=== PATIENT | female | born 1975 | race Caucasian/White ===

== ENCOUNTER 2023-07-09 13:38 | Emergency (ER) | payer OTHER, SELFPAY ==
[2023-07-09 13:42] VITALS: BP 111/80
--- NOTE | 2023-07-09 14:07 | ED.GENMED ---
History of Present Illness
General
Chief Complaint: Back Pain
Source: patient
Exam Limitations: none
Time Seen by Provider: 07/09/23 13:46
Travel History
Have you had any contact with someone who has COVID-19?: No
Do you have any symptoms of coronavirus? Fever > 100 degrees, chills, cough, shortness of breath, sore throat, loss of taste or smell, muscle aches, or headache?: No
History of Present Illness
History of Present Illness:
47-year-old female otherwise healthy presents with lower back pain that radiates to both posterior hips. This has been progressively getting worse over the past 2 to 3 days. No known injury. She tried Tylenol and Advil without relief. Initially
seen at the urgent care then sent here for further evaluation. Denies any bowel or bladder dysfunction. No perianal anesthesia. Pain is made worse with motion. She is currently breast-feeding.
Phy Exam
Physical Exam
Physical Exam:
General: Well-appearing female no acute respiratory distress but does look uncomfortable
HEENT: Normocephalic atraumatic
Heart: Regular rate and rhythm
Lungs: Clear no wheeze;
Abdomen soft nontender
Musculoskeletal exam: Spasm noted throughout the lumbar spine. She is tender over the lumbar sacral junction
Neurologic: Good sensation bilateral lower extremities. Bilateral patellar reflex and Achilles reflex 2+. Good strength.
Vascular: Bilateral 2+ dorsalis pedis pulse
Course
Orders/Labs/Results
Orders:
Orders
07/09/23 14:05
Ketorolac [Toradol] 30 mg IV NOW STA
diazePAM [Valium Injection] 5 mg IV NOW STA
Vital Signs
Initial and Last Documented VS:
Initial Vital Signs
Temp Pulse Resp BP Pulse Ox
98.4 F 62 18 111/80 100
07/09/23 13:42 07/09/23 13:42 07/09/23 13:42 07/09/23 13:42 07/09/23 13:42
Last Documented Vital Signs
Temp Pulse Resp BP Pulse Ox
98.4 F 62 18 111/80 100
07/09/23 13:42 07/09/23 13:42 07/09/23 13:42 07/09/23 13:42 07/09/23 13:42
MDM/Problems Addressed
Differential Diagnosis Includes:
Low back pain without significant leg discomfort. No bowel or bladder dysfunction or red flags to suggest cauda equina. No to suggest infectious source. Suspect muscular strain versus herniated disc versus degenerative disc disease
Family and patient hoping for an MRI, unfortunately, no emergent need for MRI imaging at this point.
Will try Toradol and Valium for her symptoms
*Critical Care Note
Total Time (30-74mins, 75-104mins- exclusive of procedures): Not Applicable
Update Note
Update Note:
Patient feeling better after Toradol and Valium. She is comfortable. I do suspect largely a component of muscular spasm but will refer to pain management for further evaluation and imaging if needed. Will prescribe prednisone and muscle relaxers.
ED Attending Note
-
Portions of this chart may have been created with voice recognition software.� Occasional wrong word or��sound alike� substitutions may have occurred due to the inherent limitations of voice recognition software.
Discharge Plan
Departure
Patient Disposition: Home (Routine Discharge)
Date of Disposition: 07/09/23
Time of Disposition: 15:22
Patient with high blood pressure during this ER visit?: No
Discharge Problem:
Low back pain
Instructions: Low Back Pain (DC)
Prescriptions:
New
prednisone 10 mg Tablet
See Rx Instructions .ROUTE .COMPLEX Qty: 30 0RF
Rx Instructions:
Take By Mouth:
40 mg daily x3 days, 30 mg daily x3 days,
20 mg daily x3 days, 10 mg daily x3 days.
diazepam [Valium] 5 mg tablet
5 mg PO BID PRN (Reason: muscle spasm) Qty: 10 0RF
Referrals:
Hay Ray MD [Active] -
NONE,* [Family Provider] -
Activity Restrictions/Additional Instructions:
Continue rest. Use warm compresses to the back. Continue with anti-inflammatories and muscle relaxers. Return if needed otherwise follow-up with pain management
Interventions
Interventions:
*Risk Screen - Suicide Last Done: 07/09/23 13:44
*General Assessment Last Done: 07/09/23 13:44
*Neglect/Abuse Screening Last Done: 07/09/23 13:44
*ED COVID-19 Vaccine History Last Done: 07/09/23 15:05
ED-Musculoskeletal Assessment Last Done: 07/09/23 15:05
Discharge Date and Time
Print Language: BENGALI
[2023-07-09] MEDS: VALIUM INJECTION 5 MG IV (14:58)
[2023-07-09] MEDS: TORADOL 30 MG IV (14:58)
[2023-07-09 15:22] VITALS: BP 106/59
== END 2023-07-09 15:25 | disposition home or self-care (01) ==
LOC: EMR 13:38
PROVIDERS: EMERGENCY PHYSICIAN Emergency Medicine
DX: M54.50 Low back pain, unspecified (principal); M25.552 Pain in left hip; M25.551 Pain in right hip; M62.830 Muscle spasm of back
CPT/HCPCS: 99284; 96374; 96375

== ENCOUNTER 2024-09-07 23:59 | Inpatient (IN) | payer BC, SELFPAY ==
[2024-09-07 20:38] VITALS: BP 138/100
[2024-09-07 22:27] VITALS: BMI 29.3
--- NOTE | 2024-09-07 22:28 | ED.SKININJ ---
HPI-Injury
General
Chief Complaint: Skin Problem
Source: patient
Exam Limitations: none
Time Seen by Provider: 09/07/24 22:11
History of Present Illness-Injury
Initial Injury comments:
49-year-old female otherwise healthy presents with increasing swelling and pain to the right hand. 8 days ago she was working in the yard and developed blisters on both hands. She was taking down an old aboveground pool with dirty water in it.
She was wearing gloves at the time. The blister on the left hand healed up well however the blister on the right hand seem to stick around and over the past 2 to 3 days her right hand is swollen became more red and painful. She also notes that her
finger is bending and hurts to straighten her index finger. She went to an urgent care today received an injection of an antibiotic and started on Keflex. She has had 2 doses of her Keflex but notes worsening symptoms. She is [id number].
She is not a diabetic. She denies fevers. She denies any drainage. No other complaint
Phy Exam
Physical Exam
Physical Exam:
General: Well-appearing female no acute respiratory distress
HEENT: Normocephalic atraumatic
Heart: Regular rate and rhythm
Lungs: Clear no wheeze
Skin: Erythema swelling and induration noted over the thenar eminence on the right hand. There is swelling that radiates to the dorsum of the hand as well
Musculoskeletal exam: The right index finger passively flex and attempt at straightening the finger does reproduce pain.
Vascular: Brisk capillary refill to the fingers on the right hand
Course
Orders/Labs/Results
Orders:
Orders
09/07/24 22:26
US Non Vasc UPPER Ext RT Urgent
Comment:
Reason For Exam: right hand infection, possible abscess
09/07/24 22:35
CRP [C-Reactive Protein] Urgent
Complete Blood Count/With Diff Urgent
Comprehensive Metabolic Panel Urgent
Sed Rate [Erythrocyte Sed Rate] Urgent
09/07/24 23:00
Vancomycin [Vancocin] 2,000 mg 0.9% Sodium Chloride 500 ml [Nss] 500 ml IV ONCE
Abnormal Lab Results
09/07/24
22:35
WBC 11.1 H 10^3/uL
(4.8-10.8)
MPV 10.5 H fL
(7.4-10.4)
Abs Immat Gran (auto) 0.1 H 10^3/uL
(0-0.05)
Absolute Neuts (auto) 7.7 H 10^3/uL
(1.4-6.5)
Absolute Monos (auto) 0.8 H 10^3/uL
(0.1-0.6)
Immature Gran % 0.6 H %
(0-0.5)
Chloride 111 H mmol/L
(98-107)
Carbon Dioxide 20 L mmol/L
(22-30)
Glucose 104 H mg/dl
(70-99)
C-Reactive Protein 36.60 H mg/L
(0.0-10.00)
09/07/24 22:35
09/07/24 22:35
Vital Signs
Initial and Last Documented VS:
Initial Vital Signs
Temp Pulse Resp BP Pulse Ox
98.7 F 75 18 138/100 100
09/07/24 20:38 09/07/24 20:38 09/07/24 20:38 09/07/24 20:38 09/07/24 20:38
Last Documented Vital Signs
Temp Pulse Resp BP Pulse Ox
98.7 F 75 18 138/100 100
09/07/24 20:38 09/07/24 20:38 09/07/24 20:38 09/07/24 20:38 09/07/24 22:33
MDM/Problems Addressed
Differential Diagnosis Includes:
Right hand swelling and pain. Consider cellulitis versus flexor tendon infection versus abscess.
Patient just started an oral antibiotic today however the symptoms are getting worse. Clinically there is some concern for flexor tendon involvement given the flexion of the finger with pain with passive extension of the finger. Will check labs.
Will order ultrasound to check for fluid collection. Start with
*Pulse Oximetry
SaO2: 100
Oxygen Mode of Delivery: Room air
Patient hypoxic: no
*Critical Care Note
Total Time (30-74mins, 75-104mins- exclusive of procedures): Not Applicable
Update Note
Update Note:
Spoke with health type technician. No obvious fluid collection. White blood cell count mildly elevated. CRP mildly elevated. Concern for possible flexor tendon infection given findings on exam. Vancomycin ordered. Will admit to hospital
ED Attending Note
-
Portions of this chart may have been created with voice recognition software.� Occasional wrong word or��sound alike� substitutions may have occurred due to the inherent limitations of voice recognition software.
Discharge Plan
Departure
Patient Disposition: Admit
Date of Disposition: 09/07/24
Time of Disposition: 23:45
Presentation/result/management discussed w/ accepting MD/DO: Hospitalist
Discharge Problem:
Cellulitis of hand, right
Prescriptions:
No Action
prednisone 10 mg Tablet
See Rx Instructions .ROUTE .COMPLEX Qty: 30 0RF
Rx Instructions:
Take By Mouth:
40 mg daily x3 days, 30 mg daily x3 days,
20 mg daily x3 days, 10 mg daily x3 days.
diazepam [Valium] 5 mg tablet
5 mg PO BID PRN (Reason: muscle spasm) Qty: 10 0RF
Referrals:
UNKNOWN - PT DOES,NOT KNOW [Family Provider]
Interventions
Interventions:
*Risk Screen - Suicide Last Done: 09/07/24 20:38
*General Assessment Last Done: 09/07/24 22:28
*Neglect/Abuse Screening Last Done: 09/07/24 20:38
*ED- Fall Risk Assessment Last Done: 09/07/24 22:28
*ED COVID-19 Vaccine History Last Done: 09/07/24 22:28
ED-Skin Assessment Last Done: 09/07/24 22:28
Discharge Date and Time
Print Language: FRENCH
[2024-09-07 22:44] LABS: Hematocrit 39.9 % (37.0-47.0); Hemoglobin 13.7 g/dL (12.0-16.0); Mean Corp Hgb Conc. 34.3 g/dL (33.0-37.0); Mean Corpuscular Volume 81.4 fL (81.0-99.0); Nucleated Red Blood Cells % 0 %; Platelet Count 240 10^3/uL (130-400); Red Cell Dist. Width 14.0 % (11.5-14.5)
[2024-09-07 23:00] LABS: ALT (SGPT) 16 U/L (0-35); AST (SGOT) 18 U/L (14-36); Albumin 4.7 g/dl (3.5-5.0); Alkaline Phosphatase 84 U/L (38-126); Blood Urea Nitrogen 11 mg/dl (7-17); Calcium 8.9 mg/dl (8.4-10.2); Carbon Dioxide 20 mmol/L (22-30); Chloride 111 mmol/L (98-107); Estimated Creatinine Clearance 104 ml/min; Glucose 104 mg/dl (70-99); Potassium 3.9 mmol/L (3.5-5.1); Sodium 139 mmol/L (135-145); Total Protein 7.3 g/dl (6.3-8.2); eGFR > 60.00
[2024-09-07 23:13] LABS: C-Reactive Protein 36.60 mg/L (0.0-10.00)
[2024-09-07] MEDS: VANCOCIN 540 MG IV (23:57)
--- NOTE | 2024-09-08 00:06 | HPS.HSE ---
Family Physician
-
Family Physician: NOT KNOW UNKNOWN - PT DOES
Chief Complaint
-
Hand pain / swelling
History of Present Illness
Patient is a 49y F with no significant PMH who presents to ED complaining of right hand pain, swelling and redness. Patient states that she was doing yard work / digging with tools about one week ago. She developed blisters on both hands
(thenar eminence). The L hand healed well. The R had persistent blistering until yesterday when it became much more swollen and painful. Today the hand was red, swollen and warm. She had difficulty moving her index finger due to pain.
Patient denies any fevers / chills, N/V/D, etc.
She was seen at Urgent Care today where she was given an IM injection of abx and started on oral cephalexin.
Her symptoms seemed to be progressing this evening prompting her to present to the ED for further evaluation.
Medical History
Past Medical History
Past Medical History: Reports None
Past Surgical History: Reports None
Social History
Tobacco: Non-smoker
Alcohol: None
Drug: None
Family History
Family History: Not pertinent
Allergies / Home Medications
Allergies reflects when Allergies were last updated in [facility].
Home Medications with original date entered in [facility]
Allergy/Medication List:
Allergies
Allergy/AdvReac Type Severity Reaction Status Date / Time
No Known Allergies Allergy Unverified 09/07/24 20:37
Home Medications
No Meds [No Current Medications] 09/07/24
Review of Systems
-
History Source: Patient
A 12 point ROS was completed and negative except as noted: Yes
Constitutional: Reports Fatigue; Denies Fever or Chills
Respiratory: Denies Cough or Trouble Breathing
Cardiac: Denies Chest Pain or Palpitations
Abdomen/GI: Denies Abdominal Pain, Nausea, Vomiting or Diarrhea
: Denies Dysuria or Frequency
Musculoskeletal: Reports Joint Pain, Joint Swelling and Edema
Neurological: Denies Dizzy or Headache
Psych: Denies Depression or Anxiety
Physical Exam
Vital Signs
Vital Signs
Temp Pulse Resp BP Pulse Ox
98.7 F 75 18 138/100 100
09/07/24 20:38 09/07/24 20:38 09/07/24 20:38 09/07/24 20:38 09/07/24 22:33
Physical Exam
General: Other (49y F in no acute distress.)
HEENT: Moist mucous membranes and PERRLA
Respiratory: Clear; No Wheezes, Rales or Rhonchi
Cardiac: S1/S2 and Regular Rhythm; No Murmur
GI: Soft, Non Tender, Non Distended and Normal Bowel Sounds
Musculoskeletal: Other (R hand edematous / erythematous - especially over the thenar eminence. Overlying superficial blister / skin breakdown. No bleeding / discharge. No fluctuance. R index finger in flexed position. Pain with ROM.)
Neuro: AO x 3
Laboratory Results
-
09/07/24 22:35
09/07/24 22:35
Laboratory Results
Total Bilirubin 0.8 mg/dl (0.2-1.3) 09/07/24 22:35
AST 18 U/L (14-36) 09/07/24 22:35
ALT 16 U/L (0-35) 09/07/24 22:35
Alkaline Phosphatase 84 U/L (38-126) 09/07/24 22:35
Impression/Plan
-
A/P: Patient is a 49y F with no significant PMH who presents to ED complaining of R hand pain, swelling and redness about one week after injury / blister formation.
Right Hand Cellulitis / Tenosynovitis
- Admit for further evaluation and treatment.
- Limited ROM of the R index finger with pain and significant local skin changes concerning for tenosynovitis.
- IV abx for now with vancomycin and ceftriaxone.
- Pain control / supportive care / etc.
- US done in the ED shows no discrete / drainable collection.
- Follow for clinical improvement.
- Consider Ortho / Hand Surgery evaluation if symptoms worsen or persist.
DVT Prophylaxis: SCDs
Code Status: Full
[2024-09-08] MEDS: TORADOL 15 MG IV (00:09)
[2024-09-08 00:11] VITALS: BP 145/91
[2024-09-08 01:01] VITALS: BP 128/84; BMI 29.0
[2024-09-08] MEDS: NSS 1000 IV ×3 (02:03→15:25)
[2024-09-08] MEDS: ROCEPHIN 1000 MG IV (02:04)
[2024-09-08] MEDS: STERILE WATER FOR INJECTION 10 ML IV (02:04)
[2024-09-08 06:57] LABS: Hematocrit 36.8 % (37.0-47.0); Hemoglobin 12.9 g/dL (12.0-16.0); Mean Corp Hgb Conc. 35.1 g/dL (33.0-37.0); Mean Corpuscular Volume 79.8 fL (81.0-99.0); Platelet Count 203 10^3/uL (130-400); Red Cell Dist. Width 13.8 % (11.5-14.5)
[2024-09-08 07:00] VITALS: BP 128/76
[2024-09-08 07:31] LABS: Blood Urea Nitrogen 10 mg/dl (7-17); Calcium 8.1 mg/dl (8.4-10.2); Carbon Dioxide 18 mmol/L (22-30); Chloride 113 mmol/L (98-107); Estimated Creatinine Clearance 121 ml/min; Glucose 94 mg/dl (70-99); Potassium 3.6 mmol/L (3.5-5.1); Sodium 138 mmol/L (135-145); eGFR > 60.00
--- NOTE | 2024-09-08 07:43 | W.PN.HOSP.TC ---
Today's Communication/Plan
-
Continue antibiotics
NPO after midnight for OR tomorrow
Assessment / Plan
Assessment / Plan
Physical Exam
General: Not in acute distress
HEENT: Moist mucous membranes
Respiratory: Clear to Auscultation Bilaterally
Cardiac: S1/S2 and Regular Rhythm
GI: Soft, Non Tender, Non Distended and Normal Bowel Sounds
Musculoskeletal: Other (R hand edematous / erythematous - especially over the thenar eminence. Overlying skin breakdown. Pain with ROM.)
Neuro: AO x 3
Assessment/Plan
49y F with no significant PMH who presented to ED complaining of right hand pain, swelling and redness. Patient stated that she was doing yard work / digging with tools about one week prior to presentation. She developed blisters on both hands
(thenar eminence). The L hand healed well. The R had persistent blistering until the day before presentation, when it became much more swollen and painful. On the day of presentation, patient's hand was red, swollen and warm. She had difficulty
moving her index finger due to pain.
Patient denied any fevers / chills, N/V/D, etc.
She was seen at Urgent Care on the day of presentation, where she was given an intramuscular injection of antibiotics and started on oral cephalexin.
Her symptoms seemed to be progressing prompting her to present to the ED for further evaluation.
Right Hand Cellulitis / Tenosynovitis
- Limited ROM of the R index finger with pain and significant local skin changes concerning for tenosynovitis.
- IV abx for now: Vanc and Rocephin changed to Zosyn
- Pain control / supportive care / etc.
- US done in the ED shows no discrete / drainable collection.
- Follow for clinical improvement.
- Consulted ID and ortho hand specialist: NPO after midnight for OR tomorrow
Reports of
-Patient clearly stated that she is NOT and was advised to hold off on at this time
DVT Prophylaxis: SCDs
Code Status: Full
Anticipated Discharge: > 48 hours
Subjective/Interval History
-
Date of Service: September 08, 2024
Patient was seen and examined. She reported her right hand symptoms have not really improved, she is having trouble making a fist, and her right hand remains quite swollen.
Objective Data
-
Labs:
Laboratory Results
09/07/24 09/08/24
22:35 05:50
WBC 11.1 H 8.0
Hgb 13.7 12.9
Hct 39.9 36.8 L
Plt Count 240 203
Sodium 139 138
Potassium 3.9 3.6
Chloride 111 H 113 H
Carbon Dioxide 20 L 18 L
BUN 11 10
Creatinine 0.7 0.6
Glucose 104 H 94
Calcium 8.9 8.1 L
Total Bilirubin 0.8
AST 18
ALT 16
Alkaline Phosphatase 84
Vital Signs:
Vital Signs
Temp Pulse Resp BP Pulse Ox
98.3 F 69 18 128/84 97
09/08/24 01:01 09/08/24 01:01 09/08/24 01:01 09/08/24 01:01 09/08/24 01:01
I&O
09/07/24 09/08/24 09/09/24
06:59 06:59 06:59
Intake Total 1185 / 1185
Balance 1185 / 1185
--- NOTE | 2024-09-08 08:22 | PHA.VAN.IN ---
Assessment
- Assessment
Renal Function: Appears similar to baseline
Maximum Temperature: 98.7
Minimum Temperature: 98.3
Concomitant Antimicrobials: Ceftriaxone
AUC Dosing Plan
- Dosing Variables
Dosing Weight (kg): 79.2
Dosing CrCl (ml/min): 121
Vd coefficient (L/kg): 0.7
- Empiric Dosing
Initial / Loading Dose: 2000mg on 09/07 @2357
Maintenance Regimen: 1250mg Q12H
Estimated AUC (mcg*h/mL): 464
Estimated Peak (mcg*h/mL): 31.5
Estimated Trough (mcg/ml): 10.5
Estimated Half Life (H): 6.6
- Monitoring
No levels ordered at this time: Consider levels in next few days
Pharmacokinetics Vancomycin I
- -
Patient Age: 49
Patient Sex: Female
Vancomycin Day #: 1
Indication: Skin And Soft Tissue
Requesting Provider: Joan Moser
Pertinent Antimicrobial Allergies:
NKDA
Height / Weight:
Height 5 ft 5 in
Actual Weight 79.152 kg
- Vital Signs / Lab Results
Temp Pulse Resp BP Pulse Ox
98.5 F 64 16 128/76 99
09/08/24 07:00 09/08/24 07:00 09/08/24 07:00 09/08/24 07:00 09/08/24 07:00
Lab Results - Hematology
09/07/24 09/08/24
22:35 05:50
WBC 11.1 H 8.0
Lab Results - Chemistry
09/07/24 09/08/24
22:35 05:50
BUN 11 10
Creatinine 0.7 0.6
Estimated Creat Clear 104 121
Albumin 4.7
[2024-09-08] MEDS: FLAGYL 500 MG 100 IV (10:21)
--- NOTE | 2024-09-08 14:11 | PTCARENOTE ---
Pt is not breast feeding. nurse came to see the pt. aware
--- NOTE | 2024-09-08 14:40 | LACTATION ---
Saw pt. at 1330 to discuss . Pt. states her son is 21 mo. old and her 'milk is dried up.' He occasionally nurses at the breast for comfort which is why her brought the toddler in to visit his mom. All meds are compatible with
per [facility]'s Medication and Mother's Milk; Vancomycin L1, Rocephin L1, Toradol L2, Flagyl L2, and Dilaudid L3 which she isn't using, so even if child received a minute amount of milk from an occasional breastfeed, it should not pose a
risk. Pt. has no need to pump since breasts are empty.
[2024-09-08 15:00] VITALS: BP 133/85
--- NOTE | 2024-09-08 15:04 | CON.ID ---
Consultation
-
Date/Time Consultation Requested: 09/08/2024 1011
Date/Time Consultation Performed: 08/12/2024 1440
Requesting Provider: Dr. Segovia
Performing Provider: Dr. Sloan
Reason for Consultation: Right hand cellulitis
Chief Complaint / Past History
History of Present Illness
Clay Ventura is a 49-year-old female being evaluated in Infectious Diseases consultation regarding right hand cellulitis and possible abscess. History is obtained from chart review, along with patient interview.
Patient reports that approximately 8 days prior she was working with her family in the yard doing yard work. She notes that she was using garden tools, and despite the use of gloves, she developed blisters on her bilateral hands. She applied
Neosporin to the area after the blisters broke. Several days ago she then was cleaning out an aboveground pool, and her hand may have come in contact with the stagnant water ovarian. She then began to develop swelling in the hand that day. She
was seen at an urgent care yesterday, received a shot of 'an antibiotic' in her arm and sent home on Keflex. Despite only a few doses of antibiotics, the hand continued to swell and she came to the emergency room for further evaluation.
Currently she notes ongoing swelling of the right hand. She is having difficulty with range of motion. She denies any fevers or chills. She describes pain in the hand, especially in the thenar eminence area. She denies any significant forearm
pain or axillary discomfort.
Past History
Past Medical History: None
Past Surgical History: None
Allergy History:
No Known Allergies Allergy (Unverified 09/07/24 20:37)
Medications Reviewed: Yes
Current Antibiotics:
Vancomycin
Ceftriaxone
Metronidazole
Social History
Tobacco: Non-Smoker
Alcohol: None
Drug: None
Personal:
Living: With Family
Employment: Employed
Family History
Family History: Not Pertinent
Review of Systems
Vital Signs
Temp Pulse Resp BP Pulse Ox
98.5 F 64 16 128/76 99
09/08/24 07:00 09/08/24 07:00 09/08/24 07:00 09/08/24 07:00 09/08/24 07:00
Physical Exam
Physical Exam
Constitutional: No Acute Distress, Comfortable and Non-toxic
Eyes: No Conjunctival Hemorrhage and Sclera Anicteric
Oral: No Thrush and No Ulcers
Cardiovascular: S1/S2; Negative S3/S4
Pulmonary: Clear and Non Labored
Gastrointestinal: Soft, Non Tender, Non Distended and Normal Bowel Sounds
Extremities: Edema (right hand, centered on the thenar eminence area) and Erythema (Right hand)
Musculoskeletal: Other (Decreased right hand range of motion.)
Skin: Warm and Dry
Neurological: Awake and Alert
Psychological: Calm
Lab / Diagnostic Study Results
09/08/24 05:50
09/08/24 05:50
Abs Immat Gran (auto) 0.1 10^3/uL (0-0.05) H 09/07/24 22:35
Absolute Neuts (auto) 7.7 10^3/uL (1.4-6.5) H 09/07/24 22:35
Absolute Lymphs (auto) 2.4 10^3/uL (1.2-3.4) 09/07/24 22:35
Absolute Monos (auto) 0.8 10^3/uL (0.1-0.6) H 09/07/24 22:35
Absolute Basos (auto) 0.0 10^3/uL (0-0.2) 09/07/24 22:35
Immature Gran % 0.6 % (0-0.5) H 09/07/24 22:35
Neutrophils % 69.3 % (42.2-75.2) 09/07/24 22:35
Lymphocytes % 21.4 % (20.5-51.1) 09/07/24 22:35
Monocytes % 6.9 % (1.7-9.3) 09/07/24 22:35
Eosinophils % 1.4 % (0-6) 09/07/24 22:35
Basophils % 0.4 % (0-2) 09/07/24 22:35
ESR 5 mm/hour (0-20) 09/07/24 22:35
C-Reactive Protein 36.60 mg/L (0.0-10.00) H 09/07/24 22:35
Microbiology Results
Micro:
09/08/24 10:44 MRSA Screen - Pending
Nose
Imaging:
09/07/2024 Ultrasound right upper extremity: Scanning of the area of concern of the lateral right hand along the palmar aspect shows no focal fluid collection. There is diffuse edematous change of the soft tissues
Assessment / Plan
Right hand cellulitis
Leukocytosis
Recommendations:
Consolidate antibiotics to Zosyn 4.5 g IV every 6 hours.
Check MRI of the right hand to assess for tenosynovitis or abscess. (Ordered)
Recommend Ortho�Hand evaluation.
Follow white count and temperature curve.
Lower extremity elevation to facilitate swelling control
Care Review
Plan reviewed with: Physician (Hospitalist)
[2024-09-08] MEDS: ZOSYN 100 IV ×2 (15:24→21:07)
--- NOTE | 2024-09-08 15:58 | CM ---
Alert awake oriented patient who lives with her Sang and 4 children in a 2 story home with 2 steps to enter and 15 steps to bed/bathroom. She is independent in activates of daily living.She does drive .Offered VN she declined need.
No VN in past . No SNF hx
Pharmacy [facility]
PCP Mic Salmeron
PLAN Home with no needs
--- NOTE | 2024-09-08 17:17 | CON.ORTHO ---
Consultation
-
Date/Time Consultation Requested: 09/08/2024; 1600
Date/Time Consultation Performed: 09/08/2024; 1715
Performing Provider: Lakeshia Gill PA-C for Dr. Tyler Gould
Reason for Consultation: Right hand cellulitis/infection
Consultation - Orthopedics
History
Ms. Ventura is a 49 year old female with no significant PMH seen today for her right hand. She reports she was working in her yard, and taking down an old pool on 08/30/2024. She noticed blisters develop on both hands over her thenar eminence. The left
hand healed without difficulty, but her right hand became progressively worse with time. She presented initially to urgent care where she received a dose of IM antibiotics, and was prescribed Keflex. Her symptoms continued to worsen which prompted
her to present to the emergency department. She localizes pain primarily to the thenar eminence of her right hand. She denies pain elsewhere. She denies fever, chills or other constitutional symptoms.
Allergies / Home Medications
Allergy/AdvReac Type Severity Reaction Status Date / Time
No Known Allergies Allergy Unverified 09/07/24 20:37
�Medication �Instructions �Recorded
No Meds [No Current Medications] 09/07/24
Vital Signs / Lab Results
Temp Pulse Resp BP Pulse Ox
98.6 F 80 16 133/85 100
09/08/24 15:00 09/08/24 15:00 09/08/24 15:00 09/08/24 15:00 09/08/24 15:00
09/08/24 05:50
09/08/24 05:50
Nonvasc US R Hand IMPRESSION:
No evidence of abscess formation.
Edematous soft tissue change.
ESR WNL. WBC WNL today.
Directed exam of the right hand reveals healing blister over the thenar eminence. Generalized swelling throughout the right hand, most notably about the thenar eminence. Erythema about the thenar eminence with a small amount of erythema tracking
along the dorsal wrist. Significant stiffness with flexion of the fingers. Pain with passive extension of the index finger. Sensation intact to light touch. Capillary refill <2 seconds.
Assessment / Plan
Right hand abscess and cellulitis
--Clay has experienced progressively worsening pain and swelling in her right hand after working in her yard about a week ago. I am also concerned for possible flexor tendon involvement given her pain with passive extension. She just completed
her MRI, report is pending. I have reached out to Dr. Armstrong for his input. He will review the MRI. For now, continue to monitor on antibiotics. I will make her NPO after midnight for possible OR tomorrow under the direction of Dr. Armstrong. We will
reevaluate her on rounds tomorrow morning. Pain control prn. Continue antibiotics per ID. She may perform gentle ROM of her hand as tolerated. Please reach out with any additional questions or concerns.
[2024-09-08] MEDS: TYLENOL 650 MG PO (21:07)
[2024-09-08] MEDS: STERILE WATER FOR INJECTION IV (23:33)
[2024-09-08 23:41] VITALS: BP 111/67
[2024-09-09] VITALS (12 sets, daily range): BP systolic 102–162; BP diastolic 64–95
[2024-09-09] MEDS: ZOSYN 100 IV ×4 (03:32→21:01)
[2024-09-09 06:26] LABS: Hematocrit 39.2 % (37.0-47.0); Hemoglobin 13.6 g/dL (12.0-16.0); Mean Corp Hgb Conc. 34.7 g/dL (33.0-37.0); Mean Corpuscular Volume 80.7 fL (81.0-99.0); Nucleated Red Blood Cells % 0 %; Platelet Count 228 10^3/uL (130-400); Red Cell Dist. Width 13.6 % (11.5-14.5)
[2024-09-09 06:48] LABS: Blood Urea Nitrogen 7 mg/dl (7-17); Calcium 8.3 mg/dl (8.4-10.2); Carbon Dioxide 19 mmol/L (22-30); Chloride 115 mmol/L (98-107); Estimated Creatinine Clearance 103 ml/min; Glucose 93 mg/dl (70-99); Potassium 3.9 mmol/L (3.5-5.1); Sodium 140 mmol/L (135-145); eGFR > 60.00
--- NOTE | 2024-09-09 07:27 | W.PN.UPDATE ---
Update Note
Progress Note Update
Patient seen and evaluated by Orthopedic surgery on morning rounds. Since admission and initiation of IV ABX (Zosyn), she denies any noticeable change/improvement in symptoms. She denies any constitutional symptoms.
PE: Directed exam of the right hand reveals healing blister over the thenar eminence. Generalized swelling throughout the right hand, most notably about the thenar eminence. Erythema about the thenar eminence. Significant stiffness with flexion of
the fingers. Pain with passive extension of the index finger and tenderness to palpation over the index finger MCP joint (volar aspect). No significant pain with wrist ROM. Sensation intact to light touch. Capillary refill <2 seconds.
MRI of the Right Hand with and without contrast was performed at [facility] on 09/08/2024 and was made available for my review.
Impression: There is edema and enhancement within the medial palmar soft tissues with a 0.8 x 0.6 x 0.9 cm peripherally enhancing focus within the soft tissues just proximal to the first metacarpophalangeal joint. This demonstrates intermediate T2
signal and is likely phlegmonous change. There is no evidence of extension into the underlying flexor digitorum tendons or flexor pollicis longus tendon. There is no evidence of osteomyelitis.
Plan:
1) At this time, patient to remain NPO.
2) Discussed with Dr. Armstrong who will evaluate the patient this morning. Tentatively, she is placed on the OR schedule for RIGHT Hand Irrigation & Debridement.
3) Continue with IV ABX per ID recommendation. Continue with treatment per primary team.
4) Orthopedic surgery will continue to follow along. Further recommendations to come after Dr. Armstrong evaluation.
--- NOTE | 2024-09-09 09:00 | W.PN.UPDATE ---
Update Note
Progress Note Update
Patient seen and examined. MRI reviewed
There is an area of fluid collection in the thenar eminence area, no evidence of extension into the deeper space.
Will proceed with surgical exploration and I&D later today
Consent obtained, OR notified. NPO
[2024-09-09] MEDS: FLUSH (NSS) 2 FLUSH IV (10:49)
--- NOTE | 2024-09-09 13:18 | W.IMMPOSTOP ---
Surgical Immed Post Op Note
-
Primary Surgeon: Patti
Pre-op Diagnosis: Right hand infection
Post-op Diagnosis: Same
Procedure Performed: Right hand incision and debridement
Anesthesia Type: General
Specimen / Cultures: Right hand purulence
Estimated Blood Loss: 2cc
Complications: none
Operative Findings: Dictated [id number]. Purulent fluid collection superficial to thenar musculature. No evidence of flexor tenosynovitis
Plan
- NWB RUE
- Continue with IV abx
- Remove packing in 2-3 days
- Dressing change in 2-3 days
- Follow culture results
--- NOTE | 2024-09-09 14:36 | PTCARENOTE ---
patient received post op from PACU in bed, awake and oriented-right hand and arm with splint and adrienne wrap in place- fingers warm and pink with good capillary refill- reporting numbness of right thumb, has good sensation to thumb, reporting pain ,
unable to rate at this time, requesting rtylenol. call king in reach, aware of regular diet ordered. plan of care on going.
[2024-09-09] MEDS: FLUSH (NSS) 1 FLUSH IV (14:40)
[2024-09-09] MEDS: NSS 1000 IV (14:40)
[2024-09-09] MEDS: TYLENOL 650 MG PO (14:41)
--- NOTE | 2024-09-09 15:45 | W.PN.HOSP.TC ---
Today's Communication/Plan
-
Status post right hand incision and debridement with Dr. Armstrong
NWB of the Right Upper Extremity
Continue antibiotics
Follow cultures
Assessment / Plan
Assessment / Plan
Physical Exam
General: Not in acute distress
HEENT: Moist mucous membranes
Respiratory: Clear to Auscultation Bilaterally
Cardiac: S1/S2 and Regular Rhythm
GI: Soft, Non Tender, Non Distended and Normal Bowel Sounds
Musculoskeletal: Other (R hand edematous / erythematous - especially over the thenar eminence. Overlying skin breakdown. Pain with range of motion.)
Neuro: AO x 3
Assessment/Plan
49 y/o female with no significant past medical history who presented to the emergency department complaining of right hand pain, swelling and redness. Patient stated that she was doing yard work / digging with tools about one week prior to
presentation. She developed blisters on both hands (thenar eminence). The left hand healed well. The right hand had persistent blistering until the day before presentation, when it became much more swollen and painful. On the day of presentation,
patient's hand was red, swollen and warm. She had difficulty moving her index finger due to pain.
Patient denied any fevers / chills, N/V/D, etc.
She was seen at Urgent Care on the day of presentation, where she was given an intramuscular injection of antibiotics and started on oral cephalexin.
Her symptoms seemed to be progressing prompting her to present to the ED for further evaluation.
Right Hand Cellulitis / Tenosynovitis status post right hand incision and debridement with Dr. Armstrong on 09/09/24
- Limited ROM of the R index finger with pain and significant local skin changes concerning for tenosynovitis.
- IV abx for now: Vanc and Rocephin changed on 09/08/24 to Zosyn -- continue Zosyn
- Pain control / supportive care / etc.
- US done in the ED shows no discrete / drainable collection but patient had surgery with Dr. Armstrong -- purulent fluid collection superficial to thenar musculature
- Follow for clinical improvement.
- Consulted ID and ortho hand specialist
- NWB RUE
- Both remove packing and dressing change in 2-3 days
- Follow culture results
Reports of
-Patient clearly stated that she is NOT and she was instructed to hold off on at this time
DVT Prophylaxis: SCDs. Will start Lovenox as long as orthopedic surgeon Dr. Christiano Armstrong is okay with it.
Code Status: Full Code
Anticipated Discharge: 24 - 48 hours
Subjective/Interval History
-
Date of Service: September 09, 2024
Patient was seen and examined. She reports her right hand symptoms are somewhat better. She denied any other symptoms or complaints.
Objective Data
-
Labs:
Laboratory Results
09/09/24
05:51
WBC 9.2
Hgb 13.6
Hct 39.2
Plt Count 228
Sodium 140
Potassium 3.9
Chloride 115 H
Carbon Dioxide 19 L
BUN 7
Creatinine 0.7
Glucose 93
Calcium 8.3 L
Vital Signs:
Vital Signs
Temp Pulse Resp BP Pulse Ox
98.1 F 62 16 140/90 99
09/09/24 14:25 09/09/24 14:25 09/09/24 14:25 09/09/24 14:25 09/09/24 14:25
I&O
09/08/24 09/09/24 09/10/24
06:59 06:59 06:59
Intake Total 1185 / 1185 200 / 200 75 / 75
Balance 1185 / 1185 200 / 200 75 / 75
[2024-09-10] MEDS: ZOSYN IV (03:08)
[2024-09-10] MEDS: NSS IV (03:09)
[2024-09-10] MEDS: ZOSYN 100 IV ×2 (03:09→09:32)
[2024-09-10 03:39] VITALS: BP 94/58
--- NOTE | 2024-09-10 07:14 | W.PN.ORTHO ---
Today's Communication / Plan
-
49 yo F POD1 right hand I&D under the direction of Dr. Armstrong
--Maintain surgical dressing to RUE for now. This may be removed on POD 2 or 3.
--Limit weight bearing to RUE for now to allow for incision rest. May perform digital ROM as tolerated.
--Preliminary gram stain reveals moderate WBC and rare gram positive cocci. Continue to follow.
--Continue abx per primary and ID. Currently Zosyn.
--Pain control prn. Elevation for edema control.
--Orthopedics will continue to follow along.
Assessment
.
Distal Motor Intact: Yes
Dressing:
Clean, dry and intact.
Plan
.
Surgery / Date: Right hand I&D, 09/09/24, Patti
Activity:
Out of bed.
PT/OT
Subjective
.
.:
Ms. Ventura is POD1 following her right hand I&D performed by Dr. Armstrong. She is resting comfortably in bed this morning. She denies any pain in the hand today. She is eager for discharge home.
Vital Signs and Labs
.
Vital Signs and Labs:
Temp Pulse Resp BP Pulse Ox
98.5 F 57 16 94/58 96
09/10/24 03:39 09/10/24 03:39 09/10/24 03:39 09/10/24 03:39 09/10/24 03:39
Physical Exam
-
Directed exam of the right upper extremity reveals surgical splint in place. Good color of fingers. Patient able to wiggle fingers. Sensation intact to light touch above and below splint. Capillary refill <2 seconds.
[2024-09-10 07:25] VITALS: BP 116/74
[2024-09-10 07:47] LABS: Hematocrit 37.6 % (37.0-47.0); Hemoglobin 12.7 g/dL (12.0-16.0); Mean Corp Hgb Conc. 33.8 g/dL (33.0-37.0); Mean Corpuscular Volume 81.7 fL (81.0-99.0); Nucleated Red Blood Cells % 0 %; Platelet Count 249 10^3/uL (130-400); Red Cell Dist. Width 13.8 % (11.5-14.5)
[2024-09-10 08:13] LABS: Blood Urea Nitrogen 6 mg/dl (7-17); Calcium 8.3 mg/dl (8.4-10.2); Carbon Dioxide 20 mmol/L (22-30); Chloride 114 mmol/L (98-107); Estimated Creatinine Clearance 103 ml/min; Glucose 94 mg/dl (70-99); Potassium 3.9 mmol/L (3.5-5.1); Sodium 138 mmol/L (135-145); eGFR > 60.00
[2024-09-10 08:35] VITALS: BP 105/69; PULSE 65; O2SAT 99
--- NOTE | 2024-09-10 10:17 | W.PN.ID1 ---
Date of Service
Date of Service: September 10, 2024
Today's Communication
Change to daptomycin.
Assessment / Plan
Right hand cellulitis
Leukocytosis
MRSA abscess
Recommendations:
Cultures reviewed, and recovery of MRSA noted.
Discontinue further Zosyn, begin daptomycin 800 mg IV every 24 hours.
Await final sensitivity data. Possible discharge on PO linezolid (but may require prior auth) vs IV daptomycin. May need CM to evaluate coverage.
����������������������������������������������������������
Chief Complaint
-: Other (Right hand infection)
Subjective / Review of Systems
Patient seen and examined. S/p right hand I&D yesterday. No specific complaints today.
Review of Systems: No Fever and No Chills
Vital Signs / Physical Exam
Vital Signs
Vital Signs
Temp Pulse Resp BP Pulse Ox
97.8 F 61 18 116/74 99
09/10/24 07:25 09/10/24 07:25 09/10/24 07:25 09/10/24 07:25 09/10/24 07:25
Physical Exam
Constitutional: No Acute Distress, Comfortable and Non-toxic
Eyes: Sclera Anicteric
Cardiovascular: S1/S2; Negative S3/S4
Pulmonary: Non Labored
Extremities: Negative Edema
Wound: Other (Right hand dressed with Prashant wrap.)
Neurological: Awake and Alert
Psychological: Calm
Objective Data
Lab Data
Lab Results
09/10/24 05:59
09/10/24 05:59
ESR 5 mm/hour (0-20) 09/07/24 22:35
Estimated Creat Clear 103 ml/min 09/10/24 05:59
Total Bilirubin 0.8 mg/dl (0.2-1.3) 09/07/24 22:35
AST 18 U/L (14-36) 09/07/24 22:35
ALT 16 U/L (0-35) 09/07/24 22:35
Alkaline Phosphatase 84 U/L (38-126) 09/07/24 22:35
C-Reactive Protein 36.60 mg/L (0.0-10.00) H 09/07/24 22:35
Most recent labs reviewed.
Micro Results:
09/09/24 12:52 Wound Culture - Preliminary
Hand - Right Staph aureus MRSA
Gram Stain - Preliminary
09/08/24 10:44 MRSA Screen - Final
Nose Staph aureus MRSA
09/09/24 12:52 Anaerobic Culture - Pending
Hand - Right
Imaging:
09/08/2024 MRI right upper extremity: Extensive T2 hyper intense signal and enhancement along the medial palmar soft tissues, which extends into the underlying lumbar poles. There is a 0.8 x 0.6 x 0.9 cm (series 902 image 27 and series 1001 image
13) focus of T2 intermediate signal with mild peripheral enhancement within the soft tissues just proximal to the first metacarpophalangeal joint. The underlying flexor digitorum superficialis and profundus tendons appear within normal limits. The
flexor pollicis longus appears within normal limits.
09/07/2024 Ultrasound right upper extremity: Scanning of the area of concern of the lateral right hand along the palmar aspect shows no focal fluid collection. There is diffuse edematous change of the soft tissues
Care Review
Plan reviewed with: Physician (Hospitalist)
--- NOTE | 2024-09-10 10:49 | W.PN.HOSP.TC ---
Today's Communication/Plan
-
Daptomycin for MRSA abscess
Dr. Armstrong recommended via [place] Text to watch patient for 1 more night
Assessment / Plan
Assessment / Plan
Physical Exam
General: Not in acute distress
HEENT: Moist mucous membranes
Respiratory: Clear to Auscultation Bilaterally
Cardiac: S1/S2 and Regular Rhythm
GI: Soft, Non Tender, Non Distended and Normal Bowel Sounds
Musculoskeletal: Other (RUE including right hand covered with MIGUELANGEL Wrap and bandage)
Neuro: AO x 3
Assessment/Plan
49 y/o female with no significant past medical history who presented to the emergency department complaining of right hand pain, swelling and redness. Patient stated that she was doing yard work / digging with tools about one week prior to
presentation. She developed blisters on both hands (thenar eminence). The left hand healed well. The right hand had persistent blistering until the day before presentation, when it became much more swollen and painful. On the day of presentation,
patient's hand was red, swollen and warm. She had difficulty moving her index finger due to pain.
Patient denied any fevers / chills, N/V/D, etc.
She was seen at Urgent Care on the day of presentation, where she was given an intramuscular injection of antibiotics and started on oral cephalexin.
Her symptoms seemed to be progressing prompting her to present to the ED for further evaluation.
Right Hand Cellulitis / Tenosynovitis status post right hand incision and debridement with Dr. Armstrong on 09/09/24
Post-Op Wound Culture MRSA positive -- MRSA Abscess
- Limited ROM of the R index finger with pain and significant local skin changes concerning for tenosynovitis.
- IV abx for now: Vanc and Rocephin changed on 09/08/24 to Zosyn -- changed to Daptomycin -- will consider Linezolid on discharge
- Pain control / supportive care / etc.
- US done in the ED shows no discrete / drainable collection but patient had surgery with Dr. Armstrong -- purulent fluid collection superficial to thenar musculature
- Follow for clinical improvement.
- Consulted ID and ortho hand specialist
- Limit weight bearing to RUE for now to allow for incision rest. May perform digital ROM as tolerated.
- Elevated RUE as tolerated to control swelling
- Both remove packing and dressing change in 2-3 days
- Follow culture results
- I communicated with orthopedics physician Dr. Armstrong today and he recommended watching patient for one more night and re-evaluation tomorrow
Reports of
-Patient clearly stated that she is NOT and she was instructed to hold off on at this time
DVT Prophylaxis: SCDs. Lovenox.
Code Status: Full Code
Anticipated Discharge: Within 24 hours
Subjective/Interval History
-
Date of Service: September 10, 2024
Patient was seen and examined. She was doing okay and denied any significant symptoms or complaints.
Objective Data
-
Labs:
Laboratory Results
09/10/24
05:59
WBC 10.9 H
Hgb 12.7
Hct 37.6
Plt Count 249
Sodium 138
Potassium 3.9
Chloride 114 H
Carbon Dioxide 20 L
BUN 6 L
Creatinine 0.7
Glucose 94
Calcium 8.3 L
Vital Signs:
Vital Signs
Temp Pulse Resp BP Pulse Ox
97.8 F 61 18 116/74 99
09/10/24 07:25 09/10/24 07:25 09/10/24 07:25 09/10/24 07:25 09/10/24 09:30
I&O
09/09/24 09/10/24 09/11/24
06:59 06:59 06:59
Intake Total 200 / 200 1295 / 1295
Balance 200 / 200 1295 / 1295
[2024-09-10] MEDS: CUBICIN 16 MG IV (11:09)
[2024-09-10 11:35] VITALS: BP 111/58
--- NOTE | 2024-09-10 11:40 | PN.CDI ---
CDI
- -
CDI:
Physician Documentation Request
Admit Date: 09/07/24 23:59
Dear Doctor Patti,
Patient admitted or cellulitis.
09/09 Operative Report: 'Right hand incision and debridement...Dissection was carried down, and there was pus that was encountered, and this was taken for aerobic and anaerobic cultures...The wound was then thoroughly irrigated'
Could you provide, in the progress notes further clarification regarding the debridement.
Please specify the type of debridement performed:
1. Excisional Debridement - defined as removal by excision of devitalized tissue, necrosis or slough
2. Non-excisional debridement - defined as removal of devitalized tissue, necrosis or slough by such methods as irrigation, brushing, scrubbing or washing.
If the debridement was excisional, please also include:
1. Type of instrument used (#11 blade, #15 blade etc.)
2. What was excised (necrotic tissue, gangrenous tissue, slough etc.)
For excisional or non-excisional, please also include:
1. Depth of debridement (skin, subcutaneous tissue, fascia, muscle, bone etc)
2. Size and appearance of the wound (L, W, D, color of wound, drainage)
Use of terms such as suspected, likely, concern for, or probable (associated with a specific diagnosis that is being evaluated, monitored, or treated as if it exists) are acceptable and can be coded in the inpatient setting, when documented at the
time of discharge.
Thank you,
Shelia Lim RN, BSN
CDI Specialist
Available via [place] text
Please use your independent medical judgment in providing your response.
--- NOTE | 2024-09-10 14:47 | PTCARENOTE ---
Pt moved to [facility], Marissa HOPPER given report. Walked pt over without incident
[2024-09-10 15:00] VITALS: BP 126/76
--- NOTE | 2024-09-10 17:13 | PTCARENOTE ---
Received patient from [facility], ambulating with steady gait in room. Right hand with good neurovascular checks, pt states right hand aches, offered tylenol , patient refused.
--- NOTE | 2024-09-10 17:23 | CM ---
Pt moved to [address] [place] [address]
Called [facility] as requested by MD for keith of Linezolid 600mg every 12 hours amt of days not indicated asked for 30 days [facility] said $70.00 MD and ID notified.
Pt will be on Linezolid po x 14 days . Informed pt of keith.
Offered VN she declined need.
Family will drive her home.
Splint with dressing on right hand . Pt has elevated right arm .
PLAN Home no needs
[2024-09-10 23:11] VITALS: BP 133/84
--- NOTE | 2024-09-11 07:09 | W.PN.ORTHO ---
Today's Communication / Plan
-
Initiate dilute Hibiclens soaks
Light dressing
Range of motion exercises during soaks
Elevation to control swelling/pain
Daptomycin per ID
Potentially discharge today if okay with medical team but close follow-up on Sunday with orthopedics
Assessment
.
Distal Motor Intact: Yes
Dressing:
Dressing/packing right hand removed. Incision with bloody drainage. No purulence noted. Edema noted throughout the hand. She is able to wiggle her fingers but not make a complete composite fist. Distal neurovascular was intact. New dry sterile
dressing applied.
Plan
.
Surgery / Date: Right hand I&D, 09/09/24Patti
DVT Prophylaxis: Aspirin
Activity:
Out of bed.
PT/OT
Discharge Plan: Home
Subjective
.
.:
Patient resting comfortably.
Vital Signs and Labs
.
Vital Signs and Labs:
Temp Pulse Resp BP Pulse Ox
98.1 F 62 20 133/84 99
09/10/24 23:11 09/10/24 23:11 09/10/24 23:11 09/10/24 23:11 09/10/24 23:11
Right hand cultures positive for MRSA
--- NOTE | 2024-09-11 07:25 | W.PN.HOSP.TC ---
Today's Communication/Plan
-
Discharge today
Assessment / Plan
Assessment / Plan
Physical Exam
General: Not in acute distress
HEENT: Moist mucous membranes
Respiratory: Clear to Auscultation Bilaterally
Cardiac: S1/S2 and Regular Rhythm
GI: Soft, Non Tender, Non Distended and Normal Bowel Sounds
Musculoskeletal: Other (RUE including right hand covered with MIGUELANGEL Wrap and bandage)
Neuro: AO x 3
Assessment/Plan
49 y/o female with no significant past medical history who presented to the emergency department complaining of right hand pain, swelling and redness. Patient stated that she was doing yard work / digging with tools about one week prior to
presentation. She developed blisters on both hands (thenar eminence). The left hand healed well. The right hand had persistent blistering until the day before presentation, when it became much more swollen and painful. On the day of presentation,
patient's hand was red, swollen and warm. She had difficulty moving her index finger due to pain.
Patient denied any fevers / chills, N/V/D, etc.
She was seen at Urgent Care on the day of presentation, where she was given an intramuscular injection of antibiotics and started on oral cephalexin.
Her symptoms seemed to be progressing prompting her to present to the ED for further evaluation.
Right Hand Cellulitis / Tenosynovitis status post right hand incision and debridement with Dr. Armstrong on 09/09/24
Post-Op Wound Culture MRSA positive -- MRSA Abscess
- Limited ROM of the R index finger with pain and significant local skin changes concerning for tenosynovitis.
- IV abx for now: Vanc and Rocephin changed on 09/08/24 to Zosyn -- changed to Daptomycin -- I communicated on 09/11/[address] Sloan, Infectious Disease physician, and confirmed that patient should be discharged on
Linezolid 600 mg PO Q12H for 14 days
- Pain control / supportive care / etc.
- US done in the ED shows no discrete / drainable collection but patient had surgery with Dr. Armsrtong -- purulent fluid collection superficial to thenar musculature
- Follow for clinical improvement.
- Consulted ID and ortho hand specialist
- Limit weight bearing to RUE for now to allow for incision rest. May perform digital ROM as tolerated.
- Elevated RUE as tolerated to control swelling and pain
- Both remove packing and dressing change in 1-2 days
- Follow culture results
- Dilute Hibiclens soaks, light dressing, range of motion exercises during soaks
- Follow-up with Dr. Armstrong of orthopedics on Sunday September 15, 2024
Reports of
-Patient clearly stated that she is NOT and she was instructed to hold off on at this time
DVT Prophylaxis: SCDs. Lovenox.
Code Status: Full Code
More than 30 minutes spent in discharge including
Final examination of the patient
Summarizing hospital stay
Instructions for continuing care to all relevant caregivers
Preparation of discharge records, prescriptions, and referral forms
Total time spent (in minutes): 35
Anticipated Discharge: Today
Subjective/Interval History
-
Date of Service: September 11, 2024
Patient was seen and examined. She reported her hand was feeling better, she denied any fever or chills. She is eager to go home today.
Objective Data
-
Labs:
Laboratory Results
09/11/24
06:00
WBC Pending
Hgb Pending
Hct Pending
Plt Count Pending
Sodium Pending
Potassium Pending
Chloride Pending
Carbon Dioxide Pending
BUN Pending
Creatinine Pending
Glucose Pending
Calcium Pending
Vital Signs:
Vital Signs
Temp Pulse Resp BP Pulse Ox
98.1 F 62 20 133/84 99
09/10/24 23:11 09/10/24 23:11 09/10/24 23:11 09/10/24 23:11 09/10/24 23:11
I&O
09/10/24 09/11/24 09/12/24
06:59 06:59 06:59
Intake Total 1295 / 1295 960 / 960
Balance 1295 / 1295 960 / 960
[2024-09-11 07:35] VITALS: BP 126/81
[2024-09-11 08:17] LABS: Hematocrit 40.2 % (37.0-47.0); Hemoglobin 13.7 g/dL (12.0-16.0); Mean Corp Hgb Conc. 34.1 g/dL (33.0-37.0); Mean Corpuscular Volume 81.5 fL (81.0-99.0); Nucleated Red Blood Cells % 0 %; Platelet Count 281 10^3/uL (130-400); Red Cell Dist. Width 14.1 % (11.5-14.5)
[2024-09-11 08:41] LABS: Blood Urea Nitrogen 9 mg/dl (7-17); Calcium 8.9 mg/dl (8.4-10.2); Carbon Dioxide 22 mmol/L (22-30); Chloride 112 mmol/L (98-107); Estimated Creatinine Clearance 103 ml/min; Glucose 91 mg/dl (70-99); Potassium 4.0 mmol/L (3.5-5.1); Sodium 140 mmol/L (135-145); eGFR > 60.00
[2024-09-11] MEDS: CUBICIN 16 MG IV (10:14)
--- NOTE | 2024-09-11 10:18 | CM ---
Chart reviewed and case operator met with patient and patient is anxious to leave today, home with family, no needs.
Plan; Home with family no needs.
--- NOTE | 2024-09-11 14:28 | W.DCSUMMARY ---
Discharge Summary
Discharge Data
Date of Admission: 09/08/24
Date of Discharge: 09/11/24
Total time spent discharging patient (in min): 35
-
Pending Results: Yes
Additional Pending Results:
Microbiology results from hospitalization
Hospital Course
49 y/o female with no significant past medical history who presented complaining of right hand pain, swelling and redness after doing yard work. She was started on intravenous antibiotics, her right hand was swollen and she had trouble making a
fist. Infectious Disease and Orthopedics were consulted. MRI showed
an area of fluid collection in the thenar eminence area, no evidence of extension into the deeper space, as per orthopedics. On 09/09/24, patient had right hand incision and excisional debridement with Dr. Armstrong of orthopedics. Cultures from the
operating room grew MRSA and patient, and patient's antibiotic was changed to Daptomycin. Antibiotic regimen for discharge was discussed with infectious disease physician, who recommended Linezolid 600 mg PO Q12H for 2 weeks. Patient was feeling
better and stable for discharge with close outpatient follow-up.
Discharge Plan
-
Patient Disposition: Home (Routine Discharge)
Discharge Diagnosis/Procedures: Right Hand Cellulitis / Tenosynovitis status post right hand incision and debridement with Dr. Armstrong on 09/09/24
Post-Op Wound Culture MRSA positive -- MRSA Abscess
Condition: Good
Diet: Regular
Activity: Other activity
Additional Activity: Limit weight bearing to right upper extremity for now to allow for incision rest. You may perform digital range of motion as tolerated.
Activity Restrictions/Additional Instructions:
Limit weight bearing to right upper extremity for now to allow for incision rest. You may perform digital range of motion as tolerated.
Elevate right upper extremity as tolerated to control swelling and pain.
Remove packing and do dressing change in 1-2 days.
Dilute Hibiclens soaks, light dressing, range of motion exercises during soaks as shown by orthopedics team.
Follow-up with Dr. Armstrong of orthopedics on Sunday September 15, 2024 -- their office is supposed to call you but if not, please call them.
Instructions: Linezolid
Referrals:
Christiano Armstrong MD [Active, Orthopedics] - in less than 1 week
Referral Note: Right Hand Infection status post right hand incision and debridement with Dr. Armstrong on September 09, 2024 -- needs follow-up before September 17, 2024
UNKNOWN - PT DOES,NOT KNOW [Family Provider]
Additional Discharge Medication Instructions: Linezolid 600 mg PO every 12 hours for 14 days is a new medication -- you need to take this for 2 weeks (14 days)
Prescriptions:
New
linezolid 600 mg tablet
600 mg PO Q12H 14 Days Qty: 28 0RF
Discharge Orders:
Discharge Patient (As Directed); Ordered 09/11/24
Ordered By: Ryley Segovia
Discharge Date and Time
Discharge Date/Time: 09/11/24 14:51
Print Language: INDONESIAN
== END 2024-09-11 14:51 | disposition home or self-care (01) | DRG 580 ==
LOC: 4 WEST ACU 23:59
PROVIDERS: Orthopaedic Surgery; Physician Assistant; ADMITTING PHYSICIAN Hospitalist; ATTENDING PHYSICIAN Hospitalist; CONSULT PHYSICIAN Specialist; EMERGENCY PHYSICIAN Emergency Medicine; OTHER PHYSICIAN Internal Medicine Infectious Disease
PROC: 0JBJ0ZZ Excision of Right Hand Subcutaneous Tissue and Fascia, Open Approach (ICD-10-PCS; 2024-09-09)
DX: L03.113 Cellulitis of right upper limb (principal); L02.91 Cutaneous abscess, unspecified; B95.62 Methicillin resistant Staphylococcus aureus infection as the cause of diseases classified elsewhere
CPT/HCPCS: 73223; 76882; 80048; 80053; 85025; 85027; 85652; 86140; 87070; 87075; 87147; 87186; 87205; 93005; 96365; 96366; 97166; 99285; A9575; J0878